=== PATIENT | female | born 1930 | race Caucasian/White ===

== ENCOUNTER 2019-09-19 17:28 | Inpatient (IN) | payer MEDICARE ==
[2019-09-19] MEDS ORDERED: Aspirin Chewable 81 MG TAB ONE (18:20)
[2019-09-19 18:53] LABS: T4 10.4 ug/dL (4.87-11.72); Thyroid Stimulating Hormone 2.5293 uIU/mL (0.35-4.94)
[2019-09-19 19:04] LABS: Troponin I Less than 0.010 ng/mL (< 0.028)
--- NOTE | 2019-09-19 20:18 | PDOC.EVN ---
Event Note - Event Note Event Note: [id number] HP
[2019-09-19] MEDS ORDERED: Ondansetron PF 4 MG/2 ML Vial IVP PRN (20:21)
[2019-09-19] MEDS ORDERED: Ondansetron ODT 4 MG TAB SL PRN (20:21)
[2019-09-19] MEDS: Heparin 5,000 UNITS/ML VIAL SC SCH (22:22)
[2019-09-19 22:31] LABS: Troponin I Less than 0.010 ng/mL (< 0.028)
[2019-09-20 01:03] VITALS: BMI 24.6
[2019-09-20] MEDS: Aspirin 325 mg Enteric Coated Tablet PO SCH ×2 (01:12→09:40)
--- NOTE | 2019-09-20 01:28 | HP ---
CHIEF COMPLAINT: Altered mental status. HISTORY OF PRESENT ILLNESS: Ms. Ca is an 88-year-old female with past medical history of hypertension, hypothyroidism, presents to [facility] after she was found on the floor at a public library, confused. As per records, the patient drove herself to the library and per children's librarian, was actually normal. She was seen by the children's librarian approximately 5 to 10 minutes before being found on the floor, very confused and unaware of what had occurred. Last seen normal around 1230 hours. The patient does not remember what happened after going to the library. The patient continues to be somewhat confused as per family, but overall slowly improving. No other focal neurological deficit was recorded. No seizure activity was reported. Workup in the emergency room including CT of the brain and CTA of the brain, no acute finding. The patient is being admitted to the hospital for further workup. PAST MEDICAL HISTORY: 1. Hypertension. 2. Hypothyroidism. 3. GERD. PAST SURGICAL HISTORY: 1. Hysterectomy. 2. Tonsillectomy. FAMILY HISTORY: Reviewed and noncontributory. SOCIAL HISTORY: Denies smoking, alcohol drinking, or drug abuse. ALLERGIES: ALLERGIC TO CODEINE. HOME MEDICATIONS: Please see home medication reconciliation form for updated medications. REVIEW OF SYSTEMS: Review of 14 systems negative except what is mentioned in history of present illness. PHYSICAL EXAMINATION: VITAL SIGNS: Blood pressure 180/77, pulse is 81, respiratory rate is 18, and temperature is 97.2. GENERAL: The patient is awake, alert, oriented, having abnormal speech, but as per the patient and family that is her baseline. HEAD AND NECK: Normocephalic and atraumatic. Neck was supple. No JVD. CHEST: Fair bilateral air entry. HEART: S1 and S2. Regular. ABDOMEN: Soft, nontender. Bowel sounds present. NEUROLOGIC: Awake, alert, and oriented x3. No focal deficit except for memory deficit for what happened today. PSYCH: Normal mood. EXTREMITIES: No clubbing, no cyanosis. GENITOURINARY: No suprapubic tenderness. No flank tenderness. MUSCULOSKELETAL: No joint deformity or tenderness. LABORATORY DATA: CT of the brain and CTA of the brain as mentioned above in history of present illness. WBC count is 6.6, hemoglobin 13.4, platelets 204. Sodium 141, potassium 4.7, BUN is 15, creatinine 1.2, glucose 103. ASSESSMENT: 1. Acute encephalopathy, metabolic. 2. Loss of memory/amnesia. 3. Hypertension. 4. Hypothyroidism. PLAN: 1. Admit. 2. Tele monitor. 3. Frequent neuro checks. 4. Aspirin. 5. MRI of the brain. 6. PT/OT/Speech Therapy eval and treat. 7. Consult Neurology in a.m. for evaluation and further recommendations. 8. Reconcile home medications. 9. DVT prophylaxis as appropriate. 10. Expected length of stay, 2 midnights. Job ID: [id number]
[2019-09-20] MEDS: Heparin 5,000 UNITS/ML VIAL SC SCH ×2 (09:40→20:39)
--- NOTE | 2019-09-20 10:42 | MRI ---
EXAM: MRI Brain WO Con PROVIDED CLINICAL HISTORY: Slurred speech COMPARISON: CT brain 09/19/2019 FINDINGS: The ventricular system appears normal in size and morphology. There is no evidence for intracranial h emorrhage or mass effect. Punctate areas of FLAIR and T2 hyperintensity involve the cerebral white matter. No evidence for restricted diffusion to suggest recent infarction. Appropriate flow voids are seen within the major intracranial vessels. The extracranial soft tissues and calvarial marrow signal appear unremarkable. IMPRESSION: No evidence for an acute intracranial abnormality.
[2019-09-20] MEDS ORDERED: Dextrose 5 %-0.45 % NaCl 1,000 ML IV SCH (11:15)
--- NOTE | 2019-09-20 11:17 | CON ---
DATE OF CONSULTATION: 09/20/2019 CONSULTING PHYSICIAN: Hospitalist Service. IMPRESSION: Probable transient global amnesia. PLAN: Continue aspirin and a statin. HISTORY OF PRESENT ILLNESS: Ms. Ca is a healthy elderly lady with history of hypertension. She was in the library and was found by the film or tape librarian acting strangely. She seemed to be a bit nauseous. She was then guided to the bathroom, but did not vomit. She began to feel better and asked to let her go home, the film or tape librarian called her daughter instead and she was picked up from the library en route home. The daughter noted that her mother kept asking the same question over and over. She brought her to the [facility]. The patient reports that she regained awareness of her surroundings when she was in the emergency room. The episode probably lasted about 2 hours. There are no other focal symptoms associated with it. Initial CT and CT angiogram were both unremarkable. Laboratory studies showed unremarkable CBC and chemistry panel. Her vital signs were stable. She is afebrile. She is without any complaints today. PAST MEDICAL HISTORY: Hypertension. ALLERGIES: CODEINE, DECONGESTION. SOCIAL HISTORY: No tobacco or alcohol. FAMILY HISTORY: Noncontributory. MEDICATION LIST: Reviewed. REVIEW OF SYSTEMS: Ten-system review of systems is otherwise negative. PHYSICAL EXAMINATION: GENERAL: She is a very healthy-appearing elderly lady, in no distress. VITAL SIGNS: Blood pressure 146/78, pulse 62, respirations 20, and temperature 98.3. HEENT: Pupils are equal and reactive. Conjunctivae are clear. NECK: Supple. EXTREMITIES: No cyanosis or edema. NEUROLOGIC: She is alert and appropriate. Her speech is fluent and clear. Her exam is nonfocal. No abnormal movements were seen. IMAGING DATA: MRI is pending. SUMMARY: This is an 88-year-old woman with transient amnesia for about 2 hours at time. Her workup thus far is negative. An MRI should rule out anything ischemic. I would continue aspirin and statin, prevention plan for the future. I will be happy to see her in the office for followup if needed. Job ID: [id number]
[2019-09-20] MEDS ORDERED: Fluticasone Propionate Nasal Spray 16 gm Bottle NASAL SCH (12:00)
[2019-09-20] MEDS ORDERED: Loratadine 10 MG TAB PO SCH (12:00)
[2019-09-20] MEDS ORDERED: Melatonin 3 MG TAB PO PRN (14:34)
[2019-09-20] MEDS ORDERED: Famotidine 20 MG TAB PO PRN (14:34)
--- NOTE | 2019-09-20 18:24 | PDOC.HOSPP ---
- Subjective Encounter Date: 09/20/19 Encounter Time: 12:30 Subjective: Patient seen and examined for Encephalopathy. Confusion improving. No new focal deficits. No fever or chills. No CP/SOB. No new complaints. No overnight events - Objective Vital Signs & Weight: Vital Signs (12 hours) Temp Pulse Pulse Pulse Resp BP BP 09/20/19 15:47 98.4 F 60 16 09/20/19 11:31 98.6 F 63 16 09/20/19 11:00 66 74 150/74 H 172/110 H 09/20/19 08:30 98.3 F 62 20 BP Pulse Ox 09/20/19 15:47 121/66 94 L 09/20/19 11:31 143/57 H 92 L 09/20/19 11:00 09/20/19 08:30 146/78 H 93 L Weight Weight 143 lb 11.2 oz I&O: 09/19/19 09/20/19 09/21/19 06:59 06:59 06:59 Intake Total 240 1100 Output Total 750 Balance 240 350 Result Diagrams: 09/21/19 05:11 Additional Labs: Laboratory Tests 09/19/19 09/19/19 14:40 15:57 BUN 25 H Creatinine 1.26 H Urine Ketones Trace A Ur Leukocyte Esterase Trace H Radiology Reviewed by me: Yes (MRI brain - neg) EKG Reviewed by me: Yes (Tele SR) Hospitalist ROS - Review of Systems Respiratory: denies: cough, dry, shortness of breath, hemoptysis, SOB with excertion, pleuritic pain, sputum, wheezing, other Cardiovascular: denies: chest pain, palpitations, orthopnea, paroxysmal noc. dyspnea, edema, light headedness, other Gastrointestinal: denies: nausea, vomiting, abdominal pain, diarrhea, constipation, melena, hematochezia, other - Medication Medications: Active Medications Generic Name Dose Route Start Last Admin Trade Name Freq PRN Reason Stop Dose Admin Heparin Sodium (Porcine) 5,000 units 09/19/19 21:00 09/20/19 09:40 Heparin SC 5,000 units Q12HR BEN Administration Influenza Virus Vaccine 180 mcg 09/20/19 21:00 09/20/19 01:12 Fluzone High-Dose 2019-20 Syr IM 09/20/19 21:01 Not Given .ONCE ONE Pneumococcal 13-Valent Conj Vacc 0.5 ml 09/20/19 21:00 09/20/19 01:13 Prevnar IM 09/20/19 21:01 Not Given .ONCE ONE - Exam General Appearance: NAD Neck: no JVD Heart: RRR, no gallops, no rubs, normal peripheral pulses Respiratory: CTAB, no wheezes, no rales, no ronchi Gastrointestinal: soft, non-tender, non-distended, normal bowel sounds Extremities: no cyanosis, no clubbing, no edema Neurological: no new deficit Psychiatric: normal affect, A&O x 3 Hosp A/P - Plan DVT proph w/heparin Toxic Metabolic Encephalopathy/Syncope ?etio (POA) MARINO vs CKD 3 Dehydration HTN GERD Hypothyroidism PLAN: MRI brain - neg Trop negative Add low dose ASA Check Vit B12 Check Echo TSH normal - cont current dose of Levothyroxine Check urine culture - UA showed yvette esterase + Monitor overnight Cont PT/OT BMP in AM Gentle IV hydration Full code - DPOA- daughter
[2019-09-20] MEDS: Atorvastatin Calcium 10 MG TAB PO SCH (20:37)
[2019-09-20] MEDS ORDERED: FLU VACC TS2019-20(65YR UP)/PF 180 MCG/0.5 ML SYRINGE IM ONE (21:00)
[2019-09-20] MEDS ORDERED: Prevnar 13-Val Conj/PF 0.5 ML SYRINGE IM ONE (21:00)
[2019-09-21 05:53] LABS: Anion Gap 12 mmol/L (10-20); BUN (Urea Nitrogen) 20 mg/dL (9.8-20.1); Calc. Creatinine Clearance 36 mL/min (70-130); Calcium 9.6 mg/dL (7.8-10.44); Carbon Dioxide 24 mmol/L (23-31); Chloride 109 mmol/L (98-107); Estimated GFR-MDRD 47; Glucose 76 mg/dL (83-110); Magnesium 2.1 mg/dL (1.6-2.6); Potassium 4.3 mmol/L (3.5-5.1); Sodium 141 mmol/L (136-145)
[2019-09-21] MEDS ORDERED: Levothyroxine Sodium 50 MCG TAB PO SCH (06:00)
[2019-09-21] MEDS: Levothyroxine Sodium 25 MCG TAB PO SCH (06:37)
[2019-09-21] MEDS ORDERED: Multivit, Therapeutic 1 TAB PO SCH (09:00)
[2019-09-21] MEDS: Multivit, Therapeutic 1 TAB PO SCH (09:25)
[2019-09-21] MEDS: Aspirin 81 mg Enteric Coated Tablet PO SCH (09:25)
[2019-09-21] MEDS: Cyanocobalamin (Vitamin B-12) 1,000 MCG TAB PO SCH (09:25)
[2019-09-21] MEDS: Folic Acid 1 MG TAB PO SCH (09:26)
[2019-09-21] MEDS: Heparin 5,000 UNITS/ML VIAL SC SCH (09:27)
[2019-09-21] MEDS: Loratadine 10 MG TAB PO SCH (09:27)
[2019-09-21] MEDS: Fluticasone Propionate Nasal Spray 16 gm Bottle NASAL SCH (09:28)
[2019-09-21] MEDS: Atorvastatin Calcium 10 MG TAB PO SCH (20:04)
--- NOTE | 2019-09-21 20:43 | PDOC.HOSPP ---
- Subjective Encounter Date: 09/21/19 Encounter Time: 13:30 Subjective: Patient seen and examined for Encephalopathy/Syncope. No new complaints. No overnight events - Objective Vital Signs & Weight: Vital Signs (12 hours) Temp Pulse Resp BP BP Pulse Ox 09/21/19 20:00 98 F 75 16 125/65 97 09/21/19 15:51 98.4 F 65 18 133/65 97 09/21/19 11:55 98.5 F 62 18 145/65 H 96 Weight Weight 143 lb 11.2 oz I&O: 09/20/19 09/21/19 09/22/19 06:59 06:59 06:59 Intake Total 240 1500 1751 Output Total 750 Balance 776 538 9049 Result Diagrams: 09/21/19 05:11 Additional Labs: Microbiology 09/20/19 12:15 Urine clean catch Urine Culture - Preliminary Laboratory Tests 09/21/19 09/21/19 09/21/19 05:11 05:11 05:11 Vitamin B12 319 Folate 13.30 Cortisol 14.30 EKG Reviewed by me: Yes (Tele SR) Hospitalist ROS - Review of Systems Respiratory: denies: cough, dry, shortness of breath, hemoptysis, SOB with excertion, pleuritic pain, sputum, wheezing, other Cardiovascular: denies: chest pain, palpitations, orthopnea, paroxysmal noc. dyspnea, edema, light headedness, other - Medication Medications: Active Medications Generic Name Dose Route Start Last Admin Trade Name Freq PRN Reason Stop Dose Admin Aspirin 81 mg 09/21/19 09:00 09/21/19 09:25 Ecotrin PO 81 mg DAILY BEN Administration Atorvastatin Calcium 10 mg 09/20/19 21:00 09/21/19 20:04 Lipitor PO 10 mg HS BEN Administration Cyanocobalamin 1,000 mcg 09/21/19 09:00 09/21/19 09:25 Vitamin B-12 PO 1,000 mcg DAILY BEN Administration Fluticasone Propionate 0 gm 09/21/19 09:00 09/21/19 09:28 Flonase Nasal [place] NASAL Not Given DAILY BEN Folic Acid 1 mg 09/21/19 09:00 09/21/19 09:26 Folvite PO 1 mg DAILY BEN Administration Levothyroxine Sodium 25 mcg 09/21/19 06:00 09/21/19 06:37 Synthroid PO 25 mcg SuMoThFrSa BEN Administration Loratadine 10 mg 09/21/19 09:00 09/21/19 09:27 Claritin PO 10 mg DAILY BEN Administration Melatonin 3 mg 09/20/19 14:34 09/20/19 20:37 Melatonin PO 3 mg HSPRN PRN Administration Insomnia Multivitamins 1 tab 09/21/19 09:00 09/21/19 09:25 Theragran PO 1 tab DAILY BEN Administration - Exam General Appearance: NAD Neck: supple, no JVD Heart: RRR, no gallops Respiratory: no wheezes, no ronchi Gastrointestinal: non-tender, non-distended, normal bowel sounds Extremities: no cyanosis Hosp A/P - Plan DVT proph w/SCDs Toxic Metabolic Encephalopathy/Syncope ?etio MARINO on CKD 3 Dehydration Hypoglycemia HTN GERD Hypothyroidism Low normal Vit B12 level PLAN: I d/w Cardiology - Patient will benefit from Event monitor Cont low dose ASA Start Vit B12 supp Await Echo F/U on urine culture as outpt Cont PT/OT DC IVF
[2019-09-22] MEDS: Levothyroxine Sodium 25 MCG TAB PO SCH (05:25)
[2019-09-22] MEDS: Loratadine 10 MG TAB PO SCH (09:14)
[2019-09-22] MEDS: Multivit, Therapeutic 1 TAB PO SCH (09:14)
[2019-09-22] MEDS: Cyanocobalamin (Vitamin B-12) 1,000 MCG TAB PO SCH (09:14)
[2019-09-22] MEDS: Folic Acid 1 MG TAB PO SCH (09:14)
[2019-09-22] MEDS: Aspirin 81 mg Enteric Coated Tablet PO SCH (09:14)
[2019-09-22] MEDS: Fluticasone Propionate Nasal Spray 16 gm Bottle NASAL SCH (09:15)
[2019-09-22 11:18] VITALS: BP 127/64; TEMP 98.6
[2019-09-23] MEDS ORDERED: Levothyroxine Sodium 50 MCG TAB PO SCH (06:00)
--- NOTE | 2019-09-23 12:48 | DIS ---
DATE OF ADMISSION: 09/19/2019 DATE OF DISCHARGE: 09/22/2019 DISCHARGE DISPOSITION: Home. FOLLOWUP: 1. Follow up with primary care physician, Dr. Marcia Hemphill, in 1 week. 2. Follow up with Nephrology, Dr. Gomez. 3. Follow up with Cardiology, Dr. Green, as scheduled. DISCHARGE MEDICATIONS: 1. Aspirin 81 mg daily. 2. Vitamin B12 1000 mcg daily. 3. Multivitamin one tablet daily. The patient was advised to continue all other home medications. She was advised to reduce losartan dose to 25 mg daily if her blood pressure remains in the lower range. DIAGNOSTIC TESTS: Echocardiogram showed ejection fraction of 55% to 60% with diastolic dysfunction, mild mitral regurgitation, mild tricuspid regurgitation. MRI of the brain was negative. The patient was seen and examined on the day of discharge. Denies any new complaints. BRIEF HOSPITAL COURSE: The patient is an 88-year-old female, who presented to the emergency room with altered mentation. The patient drove to the library. At the library, she was found confused and slumped over the chair. She remained confused overnight. Next morning, her mentation gradually started clearing up. The patient was evaluated by Neurology, Dr. Zuniga. Dr. Zuniga felt that the patient probably had transient global amnesia. MRI of the brain was negative. Echocardiogram was done as discussed above. Telemetry monitoring was negative for significant arrhythmias. Orthostatic vitals were negative. She has been started on vitamin B12 supplementation. An event monitor has been arranged from Dr. Green's office. The patient was advised to follow up with Dr. Green as outpatient. Fall precaution with 24-hour supervision will be helpful. DIAGNOSTIC TESTS: Creatinine 1.10 with BUN 20. Creatinine on admission was 1.29 with a GFR of 25. Troponin was negative. Fasting lipid profile showed LDL of 108 with cholesterol of 181 and HDL of 60. Folic acid 13.3. Vitamin B12 of 319. Cortisol level was 14. The patient understands the above plan of care. Job ID: [id number]
== END 2019-09-22 12:11 | disposition home or self-care (01) | DRG 70 ==
LOC: ERS 17:28 → 2SE 20:05
PROVIDERS: ADMIT Internal Medicine; ATTEND Internal Medicine
DX: G45.4 Transient global amnesia (principal); G92 Toxic encephalopathy; N17.9 Acute kidney failure, unspecified; E03.9 Hypothyroidism, unspecified; E86.0 Dehydration; N18.3 Chronic kidney disease, stage 3 (moderate); I12.9 Hypertensive chronic kidney disease with stage 1 through stage 4 chronic kidney disease, or unspecified chronic kidney disease; K21.9 Gastro-esophageal reflux disease without esophagitis; E16.2 Hypoglycemia, unspecified; Z79.890 Hormone replacement therapy; Z88.5 Allergy status to narcotic agent; Z90.710 Acquired absence of both cervix and uterus; Z79.899 Other long term (current) drug therapy; Z88.8 Allergy status to other drugs, medicaments and biological substances
CPT/HCPCS: 36415; 70551; 80048; 80061; 82533; 82607; 82746; 83735; 84436; 84443; 87086; 93306; 99285; J1644